=== PATIENT | male | born 1965 | race Hispanic/Latino ===

== ENCOUNTER → 2018-09-14 | Outpatient (CLI) | payer OTHER ==
--- NOTE | 2018-09-14 11:58 | Diagnostic Imaging Report ---
MRI BRAIN WO HISTORY: Homonymous bilateral visual field defect, left side COMPARISON: None. TECHNIQUE: Sagittal T2, axial T2, axial T1, axial T2/FLAIR, axial gradient echo (or susceptibility weighted), coronal T2/FLAIR, and axial diffusion weighted MR images of the brain were obtained without contrast. Susceptibility artifacts along the oral cavity obscure some details. DISCUSSION: Scalp/bone marrow: Unremarkable. Brain sulci: Appropriate for patient's age. Ventricles: The frontal horn, body, and atrium of the right lateral ventricle are dilated. This is likely due to ex vacuo dilatation. Extra-axial spaces: No masses or fluid collections. Parenchyma: The body and tail of the right caudate nucleus are atrophic. There is associated atrophy of the right putamen and right thalamus. Associated mild atrophy of the right cerebral peduncle, right billie, and right ventral medulla may be due to Wallerian degeneration. Mild focal T2/FLAIR hyperintensity in the right periatrial white matter may be due to gliosis from remote insult. Additional small T2/FLAIR hyperintense foci throughout the supratentorial white matter are likely chronic microvascular ischemic changes. Otherwise, no mass, hemorrhage, or acute vascular insults. Vessels: Normal flow voids in major arteries and veins. Sellar/Suprasellar region: No abnormalities. Craniocervical junction: No abnormalities. Incidental findings: None. IMPRESSION: 1. No acute intracranial abnormalities. 2. Right caudate, putaminal, and thalamic atrophy may be from remote infarct/insult. Mild focal T2/FLAIR hyperintensity in the right periatrial white matter may be due to associated gliosis. There is ex vacuo dilatation of the right lateral ventricle. Associated mild right cerebral peduncle, right pontine, and right medullary atrophy may be due to Wallerian degeneration. 3. Mild supratentorial chronic microvascular ischemic change. Signed by: Dr. Alexander Reyes M.D. on 09/14/2018 11:55 AM
== END ==
LOC: MRI 09:38
PROVIDERS: ATTEND Ophthalmology
DX: H53.462 Homonymous bilateral field defects, left side (principal)
CPT/HCPCS: 70551